=== PATIENT | female | born 1975 | race Two or more races ===

== ENCOUNTER 2022-10-31 22:22 | Emergency (ER) | payer SELFPAY ==
[~2022-10-31] VITALS: Ht 157.5 cm; Wt 56.7 kg
[2022-10-31 23:15] LABS: BASOPHILS ABSOLUTE AUTO 0.05 K/mm3 (0.00-0.23); BASOPHILS PERCENT AUTO 1 % (0-2); EOSINOPHILS PERCENT AUTO 1 % (0-6); Hematocrit 39.1 % (33.0-51.0); Hemoglobin 12.9 g/dL (11.5-16.0); IMMATURE GRAN ABSOLUTE AUTO 0.01 K/mm3 (0.00-0.10); IMMATURE GRAN PERCENT AUTO 0 % (0-1); LYMPHOCYTES ABSOLUTE AUTO 2.67 K/mm3 (0.84-5.20); LYMPHOCYTES PERCENT AUTO 29 % (21-46); MONOCYTES ABSOLUTE AUTO 0.81 K/mm3 (0.16-1.47); MONOCYTES PERCENT AUTO 9 % (4-13); Mean Corpuscular HGB 27.9 pg (26.0-34.0); Mean Corpuscular Volume 85 fL (80-100); Mean Platelet Volume 8.6 fL (9.1-12.4); NEUTROPHILS ABSOLUTE AUTO 5.46 K/mm3 (1.96-9.15); NEUTROPHILS PERCENT AUTO 60 % (41-73); Platelet Count 368 K/mm3 (150-400); RDW Coefficient Variation 15.4 % (11.7-14.2); RDW Standard Deviation 47.8 fL (35.1-46.3); Red Blood Cell Count 4.62 M/mm3 (3.80-5.20)
[2022-10-31 23:33] LABS: Albumin, Blood 3.8 g/dL (3.4-5.0); Albumin/Globulin Ratio 0.9 (0.8-1.8); Bilirubin, Total 0.3 mg/dL (0.1-1.0); Bun/Creatinine Ratio 18.7 (12.0-20.0); Calcium, Blood 9.6 mg/dL (8.5-10.1); Creatinine, Blood 0.48 mg/dL (0.40-1.00); Globulin, Blood 4.3 g/dL (2.2-4.0); Potassium, Blood 3.6 mmol/L (3.5-5.5); Total Protein, Blood 8.1 g/dL (6.4-8.2)
[2022-11-01 00:45] VITALS: BP 153/100
== END 2022-11-01 02:15 | disposition home or self-care (01) ==
LOC: ER 22:22
PROVIDERS: Physician Assistant
DX: R42 Dizziness and giddiness (principal)
CPT/HCPCS: 80053; 82947; 84703; 85025; 96360; 99284-25; A9270; J7030

== ENCOUNTER 2023-04-18 11:00 | Emergency (ER) | payer SELFPAY ==
[~2023-04-18] VITALS: Ht 157.5 cm; Wt 81.7 kg
[~2023-04-18 11:00] MED LIST: CEPH500 PO; ONDA4ODT MM; Robaxin750 MG PO
[2023-04-18] MEDS ORDERED: Ketorolac Tromethamine 30mg Vial IV ONE (11:20)
[2023-04-18] MEDS ORDERED: Ondansetron HCl 2 MG / ML 2ML Vial IV ONE (11:25)
[2023-04-18 11:42] LABS: BASOPHILS ABSOLUTE AUTO 0.04 K/mm3 (0.00-0.23); BASOPHILS PERCENT AUTO 1 % (0-2); EOSINOPHILS ABSOLUTE AUTO 0.16 K/mm3 (0.00-0.68); EOSINOPHILS PERCENT AUTO 4 % (0-6); Hematocrit 41.1 % (33.0-51.0); Hemoglobin 13.8 g/dL (11.5-16.0); IMMATURE GRAN ABSOLUTE AUTO 0.01 K/mm3 (0.00-0.10); IMMATURE GRAN PERCENT AUTO 0 % (0-1); LYMPHOCYTES ABSOLUTE AUTO 1.67 K/mm3 (0.84-5.20); LYMPHOCYTES PERCENT AUTO 39 % (21-46); MONOCYTES ABSOLUTE AUTO 0.31 K/mm3 (0.16-1.47); MONOCYTES PERCENT AUTO 7 % (4-13); Mean Corpuscular HGB 30.1 pg (26.0-34.0); Mean Corpuscular HGB Conc 33.6 g/dL (31.5-36.5); Mean Corpuscular Volume 90 fL (80-100); Mean Platelet Volume 8.4 fL (9.1-12.4); NEUTROPHILS ABSOLUTE AUTO 2.13 K/mm3 (1.96-9.15); NEUTROPHILS PERCENT AUTO 49 % (41-73); Platelet Count 344 K/mm3 (150-400); RDW Coefficient Variation 12.7 % (11.7-14.2); Red Blood Cell Count 4.58 M/mm3 (3.80-5.20); White Blood Cell Count 4.32 K/mm3 (4.00-11.30)
[2023-04-18 12:00] LABS: Albumin, Blood 3.5 g/dL (3.4-5.0); Albumin/Globulin Ratio 0.8 (0.8-1.8); Bilirubin, Total 0.5 mg/dL (0.1-1.0); Bun/Creatinine Ratio 15.2 (12.0-20.0); Calcium, Blood 8.7 mg/dL (8.5-10.1); Creatinine, Blood 0.53 mg/dL (0.40-1.00); Globulin, Blood 4.2 g/dL (2.2-4.0); Total Protein, Blood 7.7 g/dL (6.4-8.2)
[2023-04-18 13:20] LABS: Source, Urine Clean Catch
[2023-04-18 13:37] LABS: Appearance, Urine Clear (Clear); Bilirubin, Urine Neg (Neg); Blood, Urine 2+ (Neg); Glucose Qualitative, Urine Neg (Neg); Ketones, Urine Neg (Neg); Leukocyte Esterase, Urine Neg (Neg); Nitrite, Urine Neg (Neg); Protein, Urine Neg (Neg); Specific Gravity, Urine 1.005 (1.003-1.022); Urobilinogen, Urine NORM (Normal)
[2023-04-18] MEDS ORDERED: ONDA4ODT MM (13:41)
[2023-04-18] MEDS ORDERED: CEFP200 PO (13:41)
[2023-04-18 13:43] LABS: Color, Urine Pale Yellow (P-Yellow)
[2023-04-18 13:44] VITALS: BP 123/68
[2023-04-18 13:44] LABS: Bacteria Few /hpf; Squamous Epithelial Cells Mod /hpf (Few); Transitional Epithelial Cells Rare /hpf (0-Rare); White Blood Cells, Urine 0-2 /hpf (0-5)
== END 2023-04-18 14:09 | disposition home or self-care (01) ==
LOC: ER 11:00
PROVIDERS: Emergency Medicine
DX: N12 Tubulo-interstitial nephritis, not specified as acute or chronic (principal); Z79.899 Other long term (current) drug therapy
CPT/HCPCS: 76770; 80053; 81001; 83690; 85025; 96374; 96375; 99284-25; J1885; J2405

== ENCOUNTER → 2024-03-04 | Outpatient (CLI) | payer SELFPAY ==
[~2024-03-04] MED LIST changes: +CEFP200 PO
== END ==
LOC: LAB SHORT 18:50 → LAB 18:50
DX: R30.0 Dysuria (principal)
CPT/HCPCS: 87086

== ENCOUNTER 2024-05-15 20:05 | Emergency (ER) | payer SELFPAY ==
[~2024-05-15] VITALS: Ht 157.5 cm; Wt 54.4 kg
[2024-05-15] MEDS ORDERED: Ibuprofen 600 MG Tab PO ONE ×2 (20:20→22:30)
[2024-05-15] MEDS ORDERED: Acetaminophen 325 MG TABLET PO ONE ×2 (20:20→22:30)
[2024-05-15] MEDS ORDERED: ASPERFLEX1 EACH TOP (23:24)
[2024-05-15] MEDS ORDERED: Lidocaine 4% 1 Patch TOP ONE (23:25)
[2024-05-15 23:33] VITALS: BP 148/104
== END 2024-05-15 23:34 | disposition home or self-care (01) ==
LOC: ER 20:05
DX: M54.50 Low back pain, unspecified (principal); M25.551 Pain in right hip
CPT/HCPCS: 72100; 73502; 99283-25; A9270